=== PATIENT | female | born 1995 ===

== ENCOUNTER 2020-02-22 18:10 | Emergency (ER) | payer MEDICAID ==
[~2020-02-22] VITALS: Ht 165.1 cm; Wt 95.0 kg
[2020-02-22] MEDS ORDERED: ACETAMINOPHEN 325MG TABLET PO ONE (19:00)
[2020-02-22 20:40] VITALS: BP 100/64
== END 2020-02-22 20:54 | disposition home or self-care (01) ==
LOC: ER 18:10
DX: U07.1 COVID-19 (principal); R06.02 Shortness of breath; R05 Cough
CPT/HCPCS: 71045; 93005; 99283